=== PATIENT | male | born 1995 | race Caucasian/White ===

== ENCOUNTER 2017-03-23 20:43 | Emergency (ER) | payer BC ==
[~2017-03-23] VITALS: Ht 177.8 cm; Wt 83.1 kg
[2017-03-23 20:54] VITALS: TEMP 37; Ht 177.8 cm; Wt 83.1 kg
[2017-03-23] MEDS ORDERED: IBUP-1050 PO (21:01)
[2017-03-23] MEDS ORDERED: DEXT1CAP8 PO (21:01)
[2017-03-23] MEDS ORDERED: PHEN-622 PO (21:01)
[2017-03-23] MEDS ORDERED: AZIT250T PO (21:08)
[2017-03-23] MEDS ORDERED: AZITHROMYCIN 250 MG TAB PO ONE (21:15)
[2017-03-23 21:45] VITALS: BP 157/83; PULSE 75; O2SAT 96
--- NOTE | 2017-03-24 13:04 | EMERGENCY ROOM VISIT NOTE ---
History First contact with patient: 21:02 Chief Complaint: SORETHROAT Stated Complaint: VERY SEVERE SORE THROAT,COUGH,FEVER History of Present Illness The patient is a 21 year old male who presents to the Emergency Room with complaints of sore throat and cough for the past 4-5 days. The patient states his symptoms have slowly been worsening and he is having difficulty with swallowing because of the pain. He has been taking DayQuil and NyQuil without significant relief of symptoms, although it does help with his fever. The patient is usually healthy and up-to-date on his immunizations. He is a university student. The cough is often dry and nonproductive. He does not have distinct chest pain or chest tightness. No abdominal pain. He does not have known exposure to disease. He rates his discomfort a 5/10. Review of Systems More than 10 systems were reviewed and otherwise negative with the exception of history of present illness. Past Medical/Surgical History No chronic medical disease Family History No pertinent family history Social History Smoking Status: Never Smoker Occupation Status: [employer] student Current/Historical Medications Scheduled Azithromycin (Zithromax), 250 MG PO DAILY Scheduled PRN Lqondeabmkwbbkhj-Dsmvogrlqg-Te (Vicks Nyquil Cold & Flu), 1 CAP PO DIRECTED PRN for COLD SYMPTOMS Ibuprofen (Advil), 200-600 MG PO Q4H PRN for Pain or Fever Pllsikyhuznzl-Oi-Bo W/ Apap (Vicks Dayquil Severe Cold), 1 TAB PO DIRECTED PRN for COLD SYMPTOMS Physical Exam Vital Signs Date Time Temp Pulse Resp B/P (MAP) Pulse Ox O2 Delivery O2 Flow Rate FiO2 03/23/17 21:45 75 157/83 96 03/23/17 20:55 Room Air 03/23/17 20:54 37.0 70 16 143/85 97 Room Air Physical Exam VITALS: Vitals are noted on the nurse's note and reviewed by myself. Vital signs stable. GENERAL: Well-developed, well-nourished, white male, who is in no acute distress and resting comfortably. Patient is cooperative with the examination. HEAD: Normocephalic atraumatic. EARS: External ear normal. External auditory canals clear, tympanic membranes pearly gomes without erythema or effusion bilaterally. EYES: Pupils equal round and reactive to light and accommodation. Conjunctivae without injection, sclerae without icterus. Extraocular movements intact. NOSE: Patent, turbinates without inflammation or discharge. MOUTH: Mucous membranes moist. Tonsils are not enlarged. Posterior pharynx is with mild erythema and purulent appearing drainage NECK: Supple without nuchal rigidity. No lymphadenopathy. No thyromegaly. Cervical spine is nontender. HEART: Regular rate and rhythm without murmurs gallops or rubs. LUNGS: Clear to auscultation bilaterally without wheezes, rales or rhonchi. No retractions or accessory muscle use. Medical Decision & Procedures Medications Administered Medications (Trade) Dose Ordered Sig/Felipe Route Start Time Stop Time Status Last Admin Dose Admin Azithromycin (Zithromax Tab) 500 mg NOW ONCE PO 03/23/17 21:15 03/23/17 21:16 DC 03/23/17 21:23 500 MG ED Course Physical exam and history were performed. Nursing notes, EMR, and Medication List were personally reviewed. Patient appears to have sore throat and cough symptoms for the past several days. On examination he does appear to have purulent postnasal drainage which is most consistent with a sinusitis. He does not have a peritonsillar abscess or airway compromise. I do not suspect distinct lung involvement based on his exam. The patient is allergic to penicillin and will be given a course of Zithromax with his first dose provided here. He may continue lyza-xbk-dexoqjc medication and is to follow with [facility] with any ongoing or persisting symptoms. The chart was completed utilizing [employer] Speech Voice Recognition Software. Grammatical errors, random word insertions, pronoun errors, and incomplete sentences are an occasional consequence of this system due to software limitations, ambient noise, and hardware issues. Any formal questions or concerns about the content, text, or information contained within the body of this dictation should be directly addressed to the provider for clarification. . Medical Decision Differential diagnosis: Etiologies such as viral syndrome, otitis, pharyngitis, pneumonia, influenza, meningitis, urinary tract infection, sepsis, bacteremia, as well as others were entertained. Impression Primary Impression: Sinusitis, acute Departure Information Dispostion Home / Self-Care Condition GOOD Prescriptions Azithromycin (Zithromax) 250 Mg Tab 250 MG PO DAILY for 4 Days, #4 TAB Prov: Rohan Matthew PA-C 03/23/17 Referrals No Doctor, Assigned [facility] (PCP) Forms HOME CARE DOCUMENTATION FORM, IMPORTANT VISIT INFORMATION Patient Instructions My [facility] Additional Instructions You were seen and evaluated today on an emergency basis only. This is not a substitute for, or an effort to provide, complete comprehensive medical care. It is not possible to recognize and treat all injuries or illnesses in a single emergency department visit. For this reason it is recommended that you followup with your primary care physician in the next 2-3 days for recheck. Take Zithromax 250 mg daily for the next 4 days. For baseline pain relief you may alternate ibuprofen and acetaminophen every 4 hours for pain control. Take 600 mg ibuprofen (Advil) and then 4 hours later take 1000 mg acetaminophen (Tylenol). Do not take more than 3000 mg acetaminophen in a single day. You are welcome to return to the emergency department anytime with new, worsening, or concerning symptoms.
== END 2017-03-23 21:30 | disposition home or self-care (01) ==
LOC: C.EDB 20:47 → C.EDD 21:30
DX: J01.90 Acute sinusitis, unspecified (principal); J02.9 Acute pharyngitis, unspecified; R50.9 Fever, unspecified